=== PATIENT | male | born 2000 | race Caucasian/White ===

== ENCOUNTER 2020-11-05 00:37 | Emergency (ER) | payer OTHER ==
[~2020-11-05] VITALS: Ht 172.7 cm; Wt 75.0 kg
[2020-11-05] MEDS ORDERED: IBUPROFEN 800 MG TABLET PO ONE (04:30)
[2020-11-05 04:32] VITALS: BP 127/68
== END 2020-11-05 04:40 | disposition home or self-care (01) ==
LOC: EMS 00:42
DX: S02.2XXA Fracture of nasal bones, initial encounter for closed fracture (principal); S02.40CA Maxillary fracture, right side, initial encounter for closed fracture; Y04.2XXA Assault by strike against or bumped into by another person, initial encounter; Y93.89 Activity, other specified; Y92.89 Other specified places as the place of occurrence of the external cause; Y99.8 Other external cause status
CPT/HCPCS: 70450; 70486; 99285